=== PATIENT | female | born 1965 | race Caucasian/White ===

== ENCOUNTER 2017-01-07 16:03 | Emergency (ER) | payer MEDICARE, MEDICAID ==
[~2017-01-07] VITALS: Ht 165.1 cm; Wt 63.5 kg
[~2017-01-07 16:03] MED LIST: ASPIRIN 81MG TA81 MG PO; LEVOTHYROXIN0.175 MG PO; SIMVASTATIN20 MG PO; SINGULAIR10 MG PO
--- NOTE | 2017-01-07 16:18 | Emergency Room Report ---
History of Present Illness Time Seen by 161Rafita Presenting Problem in Triage Pt arrived:Walked Presenting Problem:LOWER BACK PAIN THAT STARTED 2 DAYS AGO, NO KNOWN INJURY. 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 N Clinical Suspician of Infection? N Mental Status: 1 - Regular (Normal Baseline) Sepsis Risk:Low Sepsis Risk Have you (or family members/close friends) recently traveled outside the [place]? N If Yes, where/when: Have you had exposure to infectious disease within the past month? TB? Other? Specify: Comment The patient complains of a 2 day history of pain in her RIGHT posterior lower back in the region of the sacroiliac joint. No trauma or unusual activity. She says that she woke up at 2 AM Friday morning with the pain. In certain positions she can completely relieve the pain, but another position she has pain and she has pain with movement. No radiation down the leg. No numbness or weakness of the legs. No numbness of the groin. No loss of bowel or bladder control. No fever, weight loss, or constitutional symptoms. She has a history of disc problems in her neck. She took a leftover Lortab for the pain. She drove herself to the emergency department today. ALLERGIES Coded Allergies: amoxicillin (Mild, 04/22/16) Home Medications Reported Medications ASPIRIN (Aspirin) 81 MG PO DAILY Montelukast Sodium (Singulair) 10 MG PO QHS Levothyroxine Sodium (Levothyroxine 0.175MG) 0.175 MG PO DAILY Simvastatin 20 MG PO DAILY History Medical History General CAD? No Angina: No [place]: No Hypertension? No Hyperlipidemia? No CHF? No DVT? No PE? No COPD? No Asthma? Yes Anemia? No GERD? No Gastric ulcers? No GI Bleed? No Hernia? No Thyroid Problems? Yes Hypothyroidism? Yes CVA? No Seizures? No Diabetes? No Renal Insuffiency? No End Stage Renal Disease? No UTI? No Stones? No BPH? No Nephritic Syndrome? No Asplenia? No Hepatitis? No Sickle Cell Disease? No Arthritis? No Migraines? No Cataracts? No Glaucoma? No MRSA? No HIV? No TB? No Anxiety? No Depression? No Cancer? No More? 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 Musculoskeletal back pain Psychiatric/Neurological denies numbness, denies weakness Physical Exam Vital Signs Vital Signs Date Time Temp Pulse Resp B/P Pulse O2 O2 Flow FiO2 Ox Delivery Rate 01/07 1630 16 01/07 1611 98.1 66 22 168/93 99 General Appearance normal appearance, WD/WN Eye Exam - bilateral eye normal exam, bilateral eye PERRL, bilateral eye EOMI Ear, Nose, Throat hearing grossly normal, normal ENT inspection Neck normal inspection, non-tender, supple, full range of motion Respiratory Status Yes: trachea midline, chest symmetrical, non tender chest. No: respiratory distress. Lung Sounds bilateral: normal breath sounds, lungs clear. Cardiovascular normal exam, regular rate/rhythm, no peripheral edema, no gallop, no JVD, no murmur, no rub, normal peripheral pulses Peripheral Pulses Pulses normal Yes Gastrointestinal normal bowel sounds, normal exam, non tender, soft, no organomegaly, no pulsatile mass Back tenderness over her RIGHT sacroiliac joint area. No vertebral tenderness. No CVA tenderness. No deformity or mass. No erythema. No rash. 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 Yes Geo was queried for this patient? Yes Reference #: [id number] Comment 0 rxs. Results/Orders Current Medication Orders Sig/Claudia Start time Last Medication Dose Route Stop Time Status Admin Ketorolac 60 MG ONCE ONE 01/07 1630 DC 01/07 Tromethamine IM 01/07 1631 1630 Ketorolac 0 .STK-MED ONE 01/07 1628 DC Tromethamine .ROUTE Orders Procedure Date/time Status PELVIS AP ONLY 01/07 1624 Active LUMBAR SPINE 5 VIEWS 01/07 1624 Active XRAY/CT/US XRAY/CT/US XRAY pelvis, L-spine Comment X-ray interpreted by Nile Sullivan M.D.: Lumbar spine: Degenerative changes with spurs, no fracture or dislocation. Pelvis: No fracture or dislocation. Progress - I estimate there is LOW risk for ABDOMINAL AORTIC ANEURYSM, ACUTE AORTIC DISSECTION, CAUDA EQUINA SYNDROME, EPIDURAL MASS LESION, OR CORD COMPRESSION, thus I consider the discharge disposition reasonable. Departure Departure Disposition DC Home or Self Care(routine) Clinical Impression Primary Impression: Low back pain Qualifiers: Chronicity: acute Back pain laterality: right Sciatica presence: without sciatica Qualified Code: M54.5 - Low back pain Condition STABLE Referrals RANDY HUFF (Family) Patient Instructions DI for Low Back Pain Additional Instructions Additional instructions for BACK PAIN: See your physician as soon as possible for further evaluation. Return immediately if back pain becomes intolerable, or if fever, numbness or weakness of your legs, loss of control of your bowels or bladder. Prescriptions Current Visit Scripts OXYCODONE HCL/ACETAMINOPHEN (Percocet 5-325 MG Tablet) 1 TAB PO Q6HP PRN pain #15 TAB Prednisone (Prednisone 10MG) 10 MG PO DAILY #27 TAB 6 po on days 1-2, then decrease dose by 1 pill per day until gone ED Critical Care Critical Care No at [id number]
--- NOTE | 2017-01-07 16:18 | Emergency Room Report ---
History of Present Illness Time Seen by 161Rafita Presenting Problem in Triage Pt arrived:Walked Presenting Problem:LOWER BACK PAIN THAT STARTED 2 DAYS AGO, NO KNOWN INJURY. 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 N Clinical Suspician of Infection? N Mental Status: 1 - Regular (Normal Baseline) Sepsis Risk:Low Sepsis Risk Have you (or family members/close friends) recently traveled outside the [place]? N If Yes, where/when: Have you had exposure to infectious disease within the past month? TB? Other? Specify: Comment The patient complains of a 2 day history of pain in her RIGHT posterior lower back in the region of the sacroiliac joint. No trauma or unusual activity. She says that she woke up at 2 AM Friday morning with the pain. In certain positions she can completely relieve the pain, but another position she has pain and she has pain with movement. No radiation down the leg. No numbness or weakness of the legs. No numbness of the groin. No loss of bowel or bladder control. No fever, weight loss, or constitutional symptoms. She has a history of disc problems in her neck. She took a leftover Lortab for the pain. She drove herself to the emergency department today. ALLERGIES Coded Allergies: amoxicillin (Mild, 04/22/16) Home Medications Reported Medications ASPIRIN (Aspirin) 81 MG PO DAILY Montelukast Sodium (Singulair) 10 MG PO QHS Levothyroxine Sodium (Levothyroxine 0.175MG) 0.175 MG PO DAILY Simvastatin 20 MG PO DAILY History Medical History General CAD? No Angina: No [place]: No Hypertension? No Hyperlipidemia? No CHF? No DVT? No PE? No COPD? No Asthma? Yes Anemia? No GERD? No Gastric ulcers? No GI Bleed? No Hernia? No Thyroid Problems? Yes Hypothyroidism? Yes CVA? No Seizures? No Diabetes? No Renal Insuffiency? No End Stage Renal Disease? No UTI? No Stones? No BPH? No Nephritic Syndrome? No Asplenia? No Hepatitis? No Sickle Cell Disease? No Arthritis? No Migraines? No Cataracts? No Glaucoma? No MRSA? No HIV? No TB? No Anxiety? No Depression? No Cancer? No More? 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 Musculoskeletal back pain Psychiatric/Neurological denies numbness, denies weakness Physical Exam Vital Signs Vital Signs Date Time Temp Pulse Resp B/P Pulse O2 O2 Flow FiO2 Ox Delivery Rate 01/07 1630 16 01/07 1611 98.1 66 22 168/93 99 General Appearance normal appearance, WD/WN Eye Exam - bilateral eye normal exam, bilateral eye PERRL, bilateral eye EOMI Ear, Nose, Throat hearing grossly normal, normal ENT inspection Neck normal inspection, non-tender, supple, full range of motion Respiratory Status Yes: trachea midline, chest symmetrical, non tender chest. No: respiratory distress. Lung Sounds bilateral: normal breath sounds, lungs clear. Cardiovascular normal exam, regular rate/rhythm, no peripheral edema, no gallop, no JVD, no murmur, no rub, normal peripheral pulses Peripheral Pulses Pulses normal Yes Gastrointestinal normal bowel sounds, normal exam, non tender, soft, no organomegaly, no pulsatile mass Back tenderness over her RIGHT sacroiliac joint area. No vertebral tenderness. No CVA tenderness. No deformity or mass. No erythema. No rash. 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 Yes Geo was queried for this patient? Yes Reference #: [id number] Comment 0 rxs. Results/Orders Current Medication Orders Sig/Claudia Start time Last Medication Dose Route Stop Time Status Admin Ketorolac 60 MG ONCE ONE 01/07 1630 DC 01/07 Tromethamine IM 01/07 1631 1630 Ketorolac 0 .STK-MED ONE 01/07 1628 DC Tromethamine .ROUTE Orders Procedure Date/time Status PELVIS AP ONLY 01/07 1624 Active LUMBAR SPINE 5 VIEWS 01/07 1624 Active XRAY/CT/US XRAY/CT/US XRAY pelvis, L-spine Comment X-ray interpreted by Nile Sullivan M.D.: Lumbar spine: Degenerative changes with spurs, no fracture or dislocation. Pelvis: No fracture or dislocation. Progress - I estimate there is LOW risk for ABDOMINAL AORTIC ANEURYSM, ACUTE AORTIC DISSECTION, CAUDA EQUINA SYNDROME, EPIDURAL MASS LESION, OR CORD COMPRESSION, thus I consider the discharge disposition reasonable. Departure Departure Disposition DC Home or Self Care(routine) Clinical Impression Primary Impression: Low back pain Qualifiers: Chronicity: acute Back pain laterality: right Sciatica presence: without sciatica Qualified Code: M54.5 - Low back pain Condition STABLE Referrals RANDY HUFF (Family) Patient Instructions DI for Low Back Pain Additional Instructions Additional instructions for BACK PAIN: See your physician as soon as possible for further evaluation. Return immediately if back pain becomes intolerable, or if fever, numbness or weakness of your legs, loss of control of your bowels or bladder. Prescriptions Current Visit Scripts OXYCODONE HCL/ACETAMINOPHEN (Percocet 5-325 MG Tablet) 1 TAB PO Q6HP PRN pain #15 TAB Prednisone (Prednisone 10MG) 10 MG PO DAILY #27 TAB 6 po on days 1-2, then decrease dose by 1 pill per day until gone ED Critical Care Critical Care No at [id number]
[2017-01-07] MEDS ORDERED: PREDNISONE 10MG10 MG PO (16:56)
[2017-01-07] MEDS ORDERED: PERCOCET1 TAB PO (16:56)
[2017-01-07 17:03] VITALS: BP 156/89
--- NOTE | 2017-01-08 05:29 | RADIOLOGY REPORT PS360 ---
EXAM: LUMBAR SPINE 5 VIEWS HISTORY: pain for 2 days ORDERING PHYSICIAN: Nile Sullivan MD PATIENT AGE: 52 years COMPARISON: None FINDINGS: Normal alignment. Degenerative disc disease L1-L2 and L2-L3. Normal alignment. No fracture or dislocation. No destructive process. IMPRESSION: Mild spondylosis upper lumbar spine
--- NOTE | 2017-01-08 05:30 | RADIOLOGY REPORT PS360 ---
PELVIS AP ONLY HISTORY: Pain. pain for 2 days ORDERING PHYSICIAN: Nile Sullivan MD PATIENT AGE: 52 years COMPARISON: None FINDINGS: No fracture or dislocation is evident. No significant degenerative change. No lytic or blastic change. The SI joints have an unremarkable appearance. Unremarkable soft tissues. IMPRESSION: Negative pelvis.
== END 2017-01-07 17:04 | disposition home or self-care (01) ==
LOC: ER 16:03
DX: M54.5 Low back pain (principal); Z72.0 Tobacco use

== ENCOUNTER → 2017-10-24 | Outpatient (CLI) | payer MEDICARE, MEDICAID ==
[~2017-10-24] MED LIST changes: +LEVOTHROID0.1 MG PO; +PERCOCET1 TAB PO; +PREDNISONE 10MG10 MG PO; +VISTARIL25 MG PO; +XANAX 0.5MG TA0.5 MG PO
--- NOTE | 2017-10-24 13:05 | RADIOLOGY REPORT PS360 ---
EXAM: CERVICAL SPINE 4 OR 5 VIEWS HISTORY: NECK PAIN ORDERING PHYSICIAN: JASON PEÑA PATIENT AGE: 52 years COMPARISON: None FINDINGS: Normal alignment. No prevertebral soft tissue swelling No fracture or dislocation. No lytic or blastic change. No significant degenerative change. The disc spaces are preserved. The foramina are widely patent. No evidence of cervical rib IMPRESSION: Normal cervical spine
--- NOTE | 2017-10-24 13:07 | RADIOLOGY REPORT PS360 ---
CHEST(2 VIEWS-NOT PORTABLE) HISTORY: RT SIDE THORACIC PAIN ORDERING PHYSICIAN: JASON PEÑA PATIENT AGE: 52 years COMPARISON: 06/02/2017 FINDINGS: The cardiomediastinal silhouette and pulmonary vascularity are within normal limits. No lobar consolidation or collapse. There is minimal blunting of the right CP angle consistent with small right effusion which has developed since the previous exam. There is a thin longitudinal density along the right lateral hemithorax inferiorly probably related to pleural reflection. Lung markings are present peripheral to this region . No acute bony anomalies. IMPRESSION: Small right pleural effusion
== END ==
LOC: RAD 11:18 → LAB 11:18
DX: M54.2 Cervicalgia (principal); M54.6 Pain in thoracic spine; R53.83 Other fatigue; E55.9 Vitamin D deficiency, unspecified; Z79.899 Other long term (current) drug therapy